=== PATIENT | male | born 1980 | race Caucasian/White ===

== ENCOUNTER 2021-08-15 16:29 | Emergency (ER) | payer BC ==
[~2021-08-15] VITALS: Ht 172.7 cm; Wt 95.5 kg
[2021-08-15 20:43] VITALS: BP 168/101
== END 2021-08-15 20:46 | disposition home or self-care (01) ==
LOC: ER 16:30
DX: I10 Essential (primary) hypertension (principal)
CPT/HCPCS: 99282